=== PATIENT | male | born 1995 | race Caucasian/White ===

== ENCOUNTER 2025-05-16 03:43 | Emergency (ER) | payer OTHER, SELFPAY ==
[2025-05-16] VITALS (29 sets, daily range): BP systolic 98–128; BP diastolic 46–97; PULSE 63–112; RESP 8–22; TEMP 36.7–36.8; O2SAT 94–100
--- NOTE | ~2025-05-16 | CT_ITS ---
CT abdomen pelvis w con Clinical History: abd pain, elevated wbc count . Comparison: None Technique: Axial images lung bases to symphysis pubis IV contrast information not in PACS Coronal, sagittal reformats CT images acquired with automatic exposure control for dose reduction DLP: 444 mGy-cm Findings: Lung bases: Clear. Visualized heart and pericardium: Unremarkable. Liver: Enlarged. Gallbladder: Unremarkable. Spleen: Unremarkable. Pancreas: Unremarkable. Adrenal glands: Unremarkable. Kidneys: Right kidney- No hydronephrosis. 3 mm and 1 mm stone. Parapelvic cyst. Left kidney- No hydronephrosis. 2 mm stone. Distal esophagus/stomach: Unremarkable. Small bowel loops: Normal caliber and wall thickness. Colon: Normal caliber and wall thickness. Normal RLQ appendix. Nodes: No enlarged nodes. Peritoneum: No ascites. No free air. Urinary bladder: Unremarkable. Prostate: Unremarkable. Bones: No acute bony abnormality. L5 spondylolysis with spondylolisthesis. Soft tissues: Unremarkable. Aorta: No aneurysm or dissection. IVC: Unremarkable. Main portal vein/SMV/splenic vein: Patent. IMPRESSION: 1. No acute findings. 2. Bilateral renal stones. No hydronephrosis. Reviewed, dictated and finalized at location R. ENGINE EVALUATOR
[2025-05-16 04:13] LABS: Hematocrit 47.0 % (42.0-52.0); Hemoglobin 16.2 g/dL (14.0-18.0); Immature Granulocyte Percent A 0.3 % (0-0.5); Lymphocytes Absolute Auto 1.52 K/mm3 (0.9-3.2); Mean Corpuscular HGB Conc 34.5 g/dl (32-36); Mean Corpuscular Hemoglobin 29.5 pg (26-34); Mean Corpuscular Volume 85.6 fl (80-100); Nucleated Red Blood Cells Absolute Auto 0.000 K/mm3 (0.0-0.012); Nucleated Red Blood Cells Perc 0.0 % (0.0-0.2); Platelet Count Result 279 k/mm3 (150-375); Red Blood Count 5.49 M/mm3 (4.6-6.20); White Blood Count 17.6 K/mm3 (4.5-10.0)
--- NOTE | 2025-05-16 04:24 | ED.NAVMDI ---
HPI - Nausea/Vomiting/Diarrhea General Chief complaint: Nausea/Vomiting/Diarrhea <Virgilio Rinaldi MD - Last Filed: 05/16/25 19:09> Stated complaint: nausea/abd pain <Virgilio Rinaldi MD - Last Filed: 05/16/25 19:09> Time Seen by Provider: 05/16/25 04:17 <Virgilio Rinaldi MD - Last Filed: 05/16/25 19:09> History of Present Illness HPI Narrative: 30-year-old otherwise healthy male presenting with epigastric abdominal pain associated nausea vomiting and diarrhea. Symptoms onset 9:00 p.m. after eating [employer]. States he has had bilious vomiting several times and then profound diarrhea at the same time. Pain comes in waves and is sharp in quality. Was otherwise in his normal state of health. Denies any fever, chills, back pain, chest pain, shortness a breath. No abdominal surgical history in the past. <Virgilio Rinaldi MD - Last Filed: 05/16/25 19:09> Related Data Allergies/Adverse reactions: Allergies Allergy/AdvReac Type Severity Reaction Status Date / Time No Known Allergies Allergy Verified 05/16/25 03:44 <Virgilio Rinaldi MD - Last Filed: 05/16/25 19:09> Review of Systems Review of Systems: As reviewed above in HPI <Virgilio Rinaldi MD - Last Filed: 05/16/25 19:09> All systems reviewed & are unremarkable except as noted in HPI and below <Virgilio Rinaldi MD - Last Filed: 05/16/25 19:09> [facility] Surgical History Surgical History: Surgical History Hx of hemorrhoidectomy <Virgilio Rinaldi MD - Last Filed: 05/16/25 19:09> Social History Social History: Social History Smoking status: Never smoker Alcohol intake: never Current Housing: Decline to Answer Concerned About Future Housing: Decline to Answer Difficulty Paying Gas/Electric Bills: Decline to Answer Difficulty Paying for Meds: Decline to Answer Currently Unemployed: Decline to Answer Education: Decline to Answer Difficulty w/ Childcare or Family Care: Decline to Answer <Virgilio Rinaldi MD - Last Filed: 05/16/25 19:09> Exam Narrative: GENERAL: [Well-appearing, well-nourished, and in no acute distress.] HEAD: [Normocephalic, atraumatic.] EYES: [PERRLA and EOMI.] ENT: Nares clear, no rhinorrhea or epistaxis. Mucous membranes moist. NECK: Supple. CHEST: [Clear to auscultation. No respiratory distress.] HEART: [Regular rate and rhythm]. No murmur heard. [Normal peripheral pulses.] ABDOMEN: [Soft, nondistended], [nontender], [No rigidity or guarding] EXTREMITIES: Normal range of motion. [No edema.] SKIN: Warm, dry, no rash. NEURO: [No focal deficits]. Alert and oriented [x3.] PSYCH: [Normal mood and affect.] <Virgilio Rnialdi MD - Last Filed: 05/16/25 19:09> Course Course Emergency Course: I assumed care of this patient at shift change with pending CT and disposition, re-examined the patient patient stated he is feeling much better notified him about his lab work, CT findings. Advised him to take Zofran as needed for nausea drink plenty of fluids, rest he <Albert Rodney MD - Last Filed: 05/16/25 07:31> Vital Signs Vital signs: Vital Signs Temperature 36.8 C 05/16/25 03:48 Pulse Rate 112 H 05/16/25 03:48 Respiratory Rate 14 05/16/25 03:48 Blood Pressure 128/82 05/16/25 03:48 Pulse Oximetry 100 05/16/25 03:48 Temperature 36.7 C 05/16/25 07:36 Pulse Rate 67 05/16/25 07:36 Respiratory Rate 16 05/16/25 07:36 Blood Pressure 115/72 05/16/25 07:36 Pulse Oximetry 99 05/16/25 07:36 <Virgilio Rinaldi MD - Last Filed: 05/16/25 19:09> Vital Signs Temperature 36.8 C 05/16/25 03:48 Pulse Rate 112 H 05/16/25 03:48 Respiratory Rate 14 05/16/25 03:48 Blood Pressure 128/82 05/16/25 03:48 Pulse Oximetry 100 05/16/25 03:48 Temperature 36.7 C 05/16/25 07:36 Pulse Rate 67 05/16/25 07:36 Respiratory Rate 16 05/16/25 07:36 Blood Pressure 115/72 05/16/25 07:36 Pulse Oximetry 99 05/16/25 07:36 <Albert Rodney MD - Last Filed: 05/16/25 07:31> [facility] MDM Narrative Medical decision making narrative: 30-year-old otherwise healthy male presenting with epigastric abdominal pain associated nausea vomiting and diarrhea. Symptoms onset 9:00 p.m. after eating [employer]. States he has had bilious vomiting several times and then profound diarrhea at the same time. Pain comes in waves and is sharp in quality. Was otherwise in his normal state of health. Denies any fever, chills, back pain, chest pain, shortness a breath. No abdominal surgical history in the past. Patient has a soft nontender nondistended abdomen but is nauseous and holding an emesis basin having waves of abdominal cramping/sharp pain. Within nausea vomiting abdominal cramping and diarrhea all the same time sudden-onset after having [employer] likely gastroenteritis versus less likely infectious pathology such as cholecystitis, symptomatic cholelithiasis, appendicitis. Possibility of gastritis versus colitis in addition to the other differential. He was given fluids antiemetics and Toradol as he does not want strong pain medicines or opiates. Laboratory studies ordered. Lab shows slight leukocytosis but otherwise LFTs and kidney function normal. Patient felt significantly better after interventions. We went over the lab results including elevated leukocytosis likely reactive from gastroenteritis. Patient still having some residual symptoms so a CT scan was ordered to further rule out any potential significant causes of symptoms. Patient care endorsed to morning physician pending CT scan and likely discharge home after unremarkable. <Virgilio Rinaldi MD - Last Filed: 05/16/25 19:09> Differential Diagnosis Differential Diagnosis: likely gastroenteritis versus less likely infectious pathology such as cholecystitis, symptomatic cholelithiasis, appendicitis. Possibility of gastritis versus colitis in addition <Virgilio Rinaldi MD - Last Filed: 05/16/25 19:09> Lab Data MDM Lab Attestation statement: I personally reviewed the patient's lab results. <Virgilio Rinaldi MD - Last Filed: 05/16/25 19:09> Result diagrams: 05/16/25 04:08 05/16/25 04:08 <Virgilio Rinaldi MD - Last Filed: 05/16/25 19:09> Labs: Lab Results 05/16/25 05/16/25 Range/Units 04:08 04:58 WBC 17.6 H (4.5-10.0) K/mm3 RBC 5.49 (4.6-6.20) M/mm3 Hgb 16.2 (14.0-18.0) g/dL Hct 47.0 (42.0-52.0) % MCV 85.6 (80-100) fl MCH 29.5 (26-34) pg MCHC 34.5 (32-36) g/dl RDW 12.5 (11.5-14.5) % Plt Count 279 (150-375) k/mm3 MPV 9.8 (7.4-10.4) fl Immature Gran % (Auto) 0.3 (0-0.5) % Neut % (Auto) 83.4 H (45.5-73.1) % Lymph % (Auto) 8.6 L (18.3-44.2) % [place] % (Auto) 6.6 (2.6-8.5) % Eos % (Auto) 0.9 (0-4.4) % Baso % (Auto) 0.2 (0.2-1.2) % Lymph # (Auto) 1.52 (0.9-3.2) K/mm3 [place] # (Auto) 1.2 H (0.1-0.6) K/mm3 Eos # (Auto) 0.2 (0-0.3) K/mm3 Baso # (Auto) 0.0 (0.0-0.1) K/mm3 Abs Immat Gran (auto) 0.06 H (0.00-0.031) K/mm3 Absolute Neuts (auto) 14.7 H (1.3-6.7) K/mm3 Absolute Nucleated RBC 0.000 (0.0-0.012) K/mm3 Nucleated RBC % 0.0 (0.0-0.2) % Sodium 140 (137-145) mmol/L Potassium 3.7 (3.4-5.0) mmol/L Chloride 106 (98-107) mmol/L Carbon Dioxide 24 (22-30) mmol/L Anion Gap 10 (4-12) mmol/L BUN 20 (9-20) mg/dL Creatinine 0.98 (0.7-1.3) mg/dL Estim Creat Clear Calc 91 ml/min Estimated GFR > 60 (59 - ) Glucose 112 H (65-110) mg/dL Calcium 9.7 (8.4-10.2) mg/dL Total Bilirubin 0.8 (0.2-1.3) mg/dL AST 37 (17-59) U/L ALT 33 (6-50) U/L Alkaline Phosphatase 81 (38-126) U/L Total Protein 8.2 (6.3-8.2) g/dL Albumin 5.0 (3.5-5.1) g/dL Lipase 110 (23-300) U/L Urine Color Yellow (Yellow) Urine Appearance Clear (Clear) Urine pH 8.5 (5.0-9.0) Ur Specific [place] 1.027 (1.001-1.035) Urine Protein 1+ H (Negative) mg/dL Urine Glucose (UA) Negative (Negative) mg/dL Urine Ketones 1+ H (Negative) mg/dL Ur Blood (Man) Negative (Negative) Urine Nitrate Negative (Negative) Urine Bilirubin Negative (Negative) Urine Urobilinogen 1.0 (<2.0) mg/dL Leukocyte Esterase Rfl Negative (Negative) JADEN/UL Urine RBC 0-2 (0-2) /hpf Urine WBC 0-5 (0-3) /hpf Ur Squamous Epith Cells None seen (Few) /hpf Urine Bacteria None seen /hpf Urine Casts 0-2 <Virgilio Rinaldi MD - Last Filed: 05/16/25 19:09> Lab Results 05/16/25 05/16/25 Range/Units 04:08 04:58 WBC 17.6 H (4.5-10.0) K/mm3 RBC 5.49 (4.6-6.20) M/mm3 Hgb 16.2 (14.0-18.0) g/dL Hct 47.0 (42.0-52.0) % MCV 85.6 (80-100) fl MCH 29.5 (26-34) pg MCHC 34.5 (32-36) g/dl RDW 12.5 (11.5-14.5) % Plt Count 279 (150-375) k/mm3 MPV 9.8 (7.4-10.4) fl Immature Gran % (Auto) 0.3 (0-0.5) % Neut % (Auto) 83.4 H (45.5-73.1) % Lymph % (Auto) 8.6 L (18.3-44.2) % [place] % (Auto) 6.6 (2.6-8.5) % Eos % (Auto) 0.9 (0-4.4) % Baso % (Auto) 0.2 (0.2-1.2) % Lymph # (Auto) 1.52 (0.9-3.2) K/mm3 [place] # (Auto) 1.2 H (0.1-0.6) K/mm3 Eos # (Auto) 0.2 (0-0.3) K/mm3 Baso # (Auto) 0.0 (0.0-0.1) K/mm3 Abs Immat Gran (auto) 0.06 H (0.00-0.031) K/mm3 Absolute Neuts (auto) 14.7 H (1.3-6.7) K/mm3 Absolute Nucleated RBC 0.000 (0.0-0.012) K/mm3 Nucleated RBC % 0.0 (0.0-0.2) % Sodium 140 (137-145) mmol/L Potassium 3.7 (3.4-5.0) mmol/L Chloride 106 (98-107) mmol/L Carbon Dioxide 24 (22-30) mmol/L Anion Gap 10 (4-12) mmol/L BUN 20 (9-20) mg/dL Creatinine 0.98 (0.7-1.3) mg/dL Estim Creat Clear Calc 91 ml/min Estimated GFR > 60 (59 - ) Glucose 112 H (65-110) mg/dL Calcium 9.7 (8.4-10.2) mg/dL Total Bilirubin 0.8 (0.2-1.3) mg/dL AST 37 (17-59) U/L ALT 33 (6-50) U/L Alkaline Phosphatase 81 (38-126) U/L Total Protein 8.2 (6.3-8.2) g/dL Albumin 5.0 (3.5-5.1) g/dL Lipase 110 (23-300) U/L Urine Color Yellow (Yellow) Urine Appearance Clear (Clear) Urine pH 8.5 (5.0-9.0) Ur Specific [place] 1.027 (1.001-1.035) Urine Protein 1+ H (Negative) mg/dL Urine Glucose (UA) Negative (Negative) mg/dL Urine Ketones 1+ H (Negative) mg/dL Ur Blood (Man) Negative (Negative) Urine Nitrate Negative (Negative) Urine Bilirubin Negative (Negative) Urine Urobilinogen 1.0 (<2.0) mg/dL Leukocyte Esterase Rfl Negative (Negative) JADEN/UL Urine RBC 0-2 (0-2) /hpf Urine WBC 0-5 (0-3) /hpf Ur Squamous Epith Cells None seen (Few) /hpf Urine Bacteria None seen /hpf Urine Casts 0-2 <Albert Rodney MD - Last Filed: 05/16/25 07:31> Imaging Data Radiologist's impression: ITS Impressions Abdomen/Pelvis CT 05/16/25 07:04 IMPRESSION: 1. No acute findings. 2. Bilateral renal stones. No hydronephrosis. <Virgilio Rinaldi MD - Last Filed: 05/16/25 19:09> ITS Impressions Abdomen/Pelvis CT 05/16/25 07:04 IMPRESSION: 1. No acute findings. 2. Bilateral renal stones. No hydronephrosis. <Albert Rodney MD - Last Filed: 05/16/25 07:31> Discharge Plan Discharge Clinical Impression: Gastroenteritis <Virgilio Rinaldi MD - Last Filed: 05/16/25 19:09> Patient Disposition: Home <Virgilio Rinaldi MD - Last Filed: 05/16/25 19:09> Condition: Stable <Virgilio Rinaldi MD - Last Filed: 05/16/25 19:09> Instructions: Antibiotic Form, Acute Nausea and Vomiting (ED), Acute Diarrhea (ED), Abdominal Pain (ED) <Virgilio Rinaldi MD - Last Filed: 05/16/25 19:09> Additional Instructions: Prescriptions sent for Zofran and Bentyl which can help with pain and nausea control. Follow-up with your regular doctors. Return with any emergent concerns. <Virgilio Rinaldi MD - Last Filed: 05/16/25 19:09> Patient Language: Kinyarwanda <Virgilio Rinaldi MD - Last Filed: 05/16/25 19:09> Prescriptions: New dicyclomine 20 mg tablet 20 mg PO TID PRN (Reason: abdominal pain) Qty: 20 0RF ondansetron 4 mg tablet,disintegrating 4 mg PO Q8H PRN (Reason: nausea and vomiting) Qty: 14 0RF dicyclomine 20 mg tablet 20 mg PO TID PRN (Reason: abdominal pain) Qty: 20 0RF ondansetron 4 mg tablet,disintegrating 4 mg PO Q8H PRN (Reason: nausea and vomiting) Qty: 14 0RF <Virgilio Rinaldi MD - Last Filed: 05/16/25 19:09> Follow-up/Referrals: Madeleine,MD John [Primary Care Provider, Unknown] <Virgilio Rinaldi MD - Last Filed: 05/16/25 19:09> Time of Disposition: 07:31 <Virgilio Rinaldi MD - Last Filed: 05/16/25 19:09> 07:31 <Albert Rodney MD - Last Filed: 05/16/25 07:31>
[2025-05-16] MEDS: ONDANSETRON INJ 4 MG/2 ML VIAL IV PUSH (04:25)
[2025-05-16] MEDS: LACTATED RINGERS 1,000 ML 999 ML IV CONT (04:25)
[2025-05-16] MEDS: KETOROLAC 15 MG/ML VIAL (*BKC) IV PUSH (04:25)
[2025-05-16] MEDS: FAMOTIDINE 20 MG/2 ML VIAL IV PUSH (04:31)
[2025-05-16 04:34] LABS: Alanine Aminotransferase 33 U/L (6-50); Albumin Level 5.0 g/dL (3.5-5.1); Alkaline Phosphatase 81 U/L (38-126); Anion Gap 10 mmol/L (4-12); Aspartate Amino Transferase 37 U/L (17-59); Bilirubin,Total 0.8 mg/dL (0.2-1.3); Blood Urea Nitrogen 20 mg/dL (9-20); Calcium 9.7 mg/dL (8.4-10.2); Carbon Dioxide 24 mmol/L (22-30); Chloride 106 mmol/L (98-107); Estimated CRCL calculation 91 ml/min; Estimated Glomerular Filt Rate > 60; Glucose 112 mg/dL (65-110); Lipase 110 U/L (23-300); Potassium 3.7 mmol/L (3.4-5.0); Sodium 140 mmol/L (137-145); Total Protein 8.2 g/dL (6.3-8.2)
[2025-05-16 05:11] LABS: Non Pathogenic Casts 0-2
[2025-05-16 05:23] LABS: Add Urine Microscopic? YES; Appearance Urine Clear (Clear); Glucose Urine UA Negative (Negative); Leukocyte Esterase Ur Negative LEU/UL (Negative); Nitrate Urine Negative (Negative); Specific Grav Ur 1.027 (1.001-1.035)
== END 2025-05-16 07:38 | disposition home or self-care (01) ==
PROVIDERS: Student in an Organized Health Care Education/Training Program; Emergency Provider Family Medicine; PCP Internal Medicine
DX: K52.9 Noninfective gastroenteritis and colitis, unspecified (principal); N20.0 Calculus of kidney
CPT/HCPCS: 36415; 74177; 80053; 81001; 83690; 85025; 96361; 96374; 96375; 99284; J1885; J2405; J7120; Q9967